=== PATIENT | male | born 1940 | race Hispanic/Latino ===

== ENCOUNTER 2019-03-13 01:07 | Emergency (ER) | payer OTHER ==
--- NOTE | 2019-03-13 02:39 | EDPHYS ---
Physician Documentation [facility] Name: Magdaleno Velázquez Age: 78 yrs Sex: Male : 1940 Arrival Date: 03/13/2019 Time: 01:08 Bed 13 Private MD: ED Physician Abrahan Hernandez HPI: 03/13 03:47 This 78 yrs old Male presents to ER via Ambulatory with complaints of Fall tw4 Injury. 03:47 Details of fall: The patient fell from an upright position, while standing. Onset: The tw4 symptoms/episode began/occurred just prior to arrival. Associated injuries: The patient sustained injury to the head. Severity of symptoms: At their worst the symptoms were mild, in the emergency department the symptoms are unchanged. The patient has not experienced similar symptoms in the past. Historical: - Allergies: 01:27 No Known Allergies; bb - Home Meds: :27 Aspirin Oral [Active]; Metoprolol Tartrate Oral [Active]; statin [Active]; bb - PMHx: :27 Hypertension; Myocardial infarction; bb - PSHx: :27 Heart stents; Appendectomy; Pin in right hand; bb - Immunization history: Last tetanus immunization: unknown. - Social history:: Smoking status: Patient uses tobacco products, smokes one-half pack cigarettes per day. - Ebola Screening: : No symptoms or risks identified at this time. ROS: 03:47 Constitutional: Negative for fever, chills, and weight loss, Cardiovascular: Negative tw4 for chest pain, palpitations, and edema, Respiratory: Negative for shortness of breath, cough, wheezing, and pleuritic chest pain, Abdomen/GI: Negative for abdominal pain, nausea, vomiting, diarrhea, and constipation, Back: Negative for injury and pain, MS/Extremity: Negative for injury and deformity, Skin: Negative for injury, rash, and discoloration, Neuro: Negative for headache, weakness, numbness, tingling, and seizure. Exam: 03:47 Constitutional: This is a well developed, well nourished patient who is awake, alert, tw4 and in no acute distress. Chest/axilla: Normal chest wall appearance and motion. Nontender with no deformity. No lesions are appreciated. Cardiovascular: Regular rate and rhythm with a normal S1 and S2. No gallops, murmurs, or rubs. Normal PMI, no JVD. No pulse deficits. Respiratory: Lungs have equal breath sounds bilaterally, clear to auscultation and percussion. No rales, rhonchi or wheezes noted. No increased work of breathing, no retractions or nasal flaring. Abdomen/GI: Soft, non-tender, with normal bowel sounds. No distension or tympany. No guarding or rebound. No evidence of tenderness throughout. 03:47 Head/face: Noted is contusion, that is deep, of the forehead and nose. 03:47 Musculoskeletal/extremity: Extremities: noted in the left wrist: decreased ROM, pain, swelling, tenderness. Vital Signs: 01:18 BP 188 / 98; Pulse 79; Resp 16 S; Temp 98.1(O); Pulse Ox 97% on R/A; Weight 83.46 kg bb (R); Height 5 ft. 9 in. (175.26 cm) (R); Pain 10/10; 02:00 BP 142 / 80; Pulse 80; Resp 17; Pulse Ox 98% on R/A; rr5 03:00 BP 133 / 72; Pulse 75; Resp 16; Temp 98; Pulse Ox 99% on R/A; rr5 01:18 Body Mass Index 27.17 (83.46 kg, 175.26 cm) bb Kenny Coma Score: 01:18 Eye Response: spontaneous(4). Verbal Response: oriented(5). Motor Response: obeys bb commands(6). Total: 15. 03:00 Eye Response: spontaneous(4). Verbal Response: oriented(5). Motor Response: obeys rr5 commands(6). Total: 15. Trauma Score (Adult): 01:18 Eye Response: spontaneous(1); Verbal Response: oriented(1); Motor Response: obeys bb commands(2); Systolic BP: > 89 mm Hg(4); Respiratory Rate: 10 to 29 per min(4); [place] Score: 15; Trauma Score: 12 MDM: 01:18 Patient medically screened. tw4 03:47 Differential diagnosis: closed head injury, fracture, sprain, strain. Data reviewed: tw4 vital signs, nurses notes. Test interpretation: by ED physician or midlevel provider: plain radiologic studies. Counseling: I had a detailed discussion with the patient and/or guardian regarding: the historical points, exam findings, and any diagnostic results supporting the discharge/admit diagnosis, lab results, radiology results. Medication response: tramadol. Response to treatment: the patient's symptoms have markedly improved after treatment, and as a result, I will continue to observe the patient. Special discussion: I discussed with the patient/guardian in detail that at this point there is no indication for admission to the hospital. It is understood, however, that if the symptoms persist or worsen the patient needs to return immediately for re-evaluation. 03/13 01:19 Order name: Wrist Left (2 View) XRAY tw4 03/13 01:19 Order name: CT Facial Bones W/O Con tw4 03/13 01:19 Order name: CT Head Brain wo Cont 4 03/13 02:59 Order name: Volar Wrist Splint: volar dorsal splint.; Complete Time: 02:59 rr5 03/13 02:59 Order name: Misc. Order: arm sling; Complete Time: 02:59 rr5 Administered Medications: 02:50 Drug: traMADol 50 mg {Note: rass 0.} Route: PO; rr5 03:00 Follow up: Response: Medication administered at discharge. rr5 Disposition: 03/13/19 02:38 Discharged to Home. Impression: Nondisplaced fracture of unspecified radial styloid process, Fracture of nasal bones. - Condition is Stable. - Discharge Instructions: Wrist Fracture Treated With Immobilization, Nasal Fracture, [id number], Head Injury, Adult, [id number]. - Prescriptions for Tramadol 50 mg Oral Tablet - take 1 tablet by ORAL route every 8 hours as needed; 12 tablet. - Medication Reconciliation Form, Thank You Letter, Antibiotic Education, Prescription Opioid Use form. - Follow up: Private Physician; When: Upon discharge from the Emergency Department; Reason: Recheck today's complaints, Continuance of care. Follow up: Alex Stallings MD; When: Upon discharge from the Emergency Department; Reason: Recheck today's complaints, Continuance of care, Re-evaluation by your physician. Follow up: Ilya Gaspar MD; When: Upon discharge from the Emergency Department; Reason: Recheck today's complaints, Continuance of care, Re-evaluation by your physician. - Problem is new. - Symptoms have improved. Signatures: Dispatcher [employer] EDManuela Gordon RN RN bb Abrahan Hernandez MD MD tw4 Jose Angel Connolly RN RN rr5 Corrections: (The following items were deleted from the chart) 02:39 02:38 03/13/2019 02:38 Discharged to Home. Impression: Nondisplaced fracture of tw4 unspecified radial styloid process; Fracture of nasal bones. Condition is Stable. Forms are Medication Reconciliation Form, Thank You Letter, Antibiotic Education, Prescription Opioid Use. Follow up: Private Physician; When: Upon discharge from the Emergency Department; Reason: Recheck today's complaints, Continuance of care. Problem is new. Symptoms have improved. tw4 03:05 02:39 03/13/2019 02:38 Discharged to Home. Impression: Nondisplaced fracture of rr5 unspecified radial styloid process; Fracture of nasal bones. Condition is Stable. Discharge Instructions: Wrist Fracture Treated With Immobilization, Nasal Fracture, [id number]. Prescriptions for Tramadol 50 mg Oral Tablet - take 1 tablet by ORAL route every 8 hours as needed; 12 tablet. and Forms are Medication Reconciliation Form, Thank You Letter, Antibiotic Education, Prescription Opioid Use. Follow up: Private Physician; When: Upon discharge from the Emergency Department; Reason: Recheck today's complaints, Continuance of care. Follow up: Alex Stallings; When: Upon discharge from the Emergency Department; Reason: Recheck today's complaints, Continuance of care, Re-evaluation by your physician. Follow up: Dr. Ilya Gaspar; When: Upon discharge from the Emergency Department; Reason: Recheck today's complaints, Continuance of care, Re-evaluation by your physician. Problem is new. Symptoms have improved. tw4
--- NOTE | 2019-03-13 02:39 | ER ---
Nurse's Notes [facility] Name: Magdaleno Velázquez Age: 78 yrs Sex: Male : 1940 Arrival Date: 03/13/2019 Time: 01:08 Bed 13 Private MD: Diagnosis: Nondisplaced fracture of unspecified radial styloid process;Fracture of nasal bones Presentation: 03/13 01:18 Presenting complaint: Patient states: approx 2 hours ago he tripped over the dog bb blanket and fell face first he thinks he broke his nose and his left wrist, he denies LOC or vomiting, he was not going to come in but the pain in his wrist is getting worse. Care prior to arrival: None. Mechanism of Injury: Fall from standing position. Trauma event details: Injury occurred in the [facility], Injury occurred: at home. Injury occurred: March 13, 2019. 01:18 Acuity: BRENDAN 3 bb 01:18 Method Of Arrival: Ambulatory bb 01:24 Transition of care: patient was not received from another setting of care. Onset of bb symptoms was March 13, 2019. Risk Assessment: Do you want to hurt yourself or someone else? Patient reports no desire to harm self or others. Initial Sepsis Screen: Does the patient meet any 2 criteria? No. Patient's initial sepsis screen is negative. Does the patient have a suspected source of infection? No. Patient's initial sepsis screen is negative. Trauma Activation: Not Applicable Physician: ED Physician; Name: ; Notified At: ; Arrived At: Physician: General Surgeon; Name: ; Notified At: ; Arrived At: Physician: Radiology; Name: ; Notified At: ; Arrived At: Physician: Respiratory; Name: ; Notified At: ; Arrived At: Physician: Lab; Name: ; Notified At: ; Arrived At: Historical: - Allergies: : No Known Allergies; bb - Home Meds: : Aspirin Oral [Active]; Metoprolol Tartrate Oral [Active]; statin [Active]; bb - PMHx: : Hypertension; Myocardial infarction; bb - PSHx: : Heart stents; Appendectomy; Pin in right hand; bb - Immunization history: Last tetanus immunization: unknown. - Social history:: Smoking status: Patient uses tobacco products, smokes one-half pack cigarettes per day. - Ebola Screening: : No symptoms or risks identified at this time. Screenin:24 Abuse screen: Denies threats or abuse. Denies injuries from another. Nutritional rr5 screening: No deficits noted. Tuberculosis screening: No symptoms or risk factors identified. Fall Risk Fall in past 12 months (25 points). Total Moyer Fall Scale indicates Low Risk Score (25-44 pts). Fall prevention measures have been instituted. Side Rails Up X 2 Placed close to Nursing Station Frequent Obs/Assesments occuring As available Patient and Family Educated on Fall Prevention Program and strategies. Primary Survey: 01:18 NO uncontrolled hemorrhage observed. A: The patient is alert. Airway: patent. bb Breathing/Chest: Respiratory pattern: regular, Respiratory effort: spontaneous, unlabored. Circulation: Heart tones present. Disability Alert. Exposure/Environment: All clothing and personal items were removed. Forensic evidence collection is not deemed to be indicated at this time. Items placed in patient belonging bag. Assessment: 01:20 General: Appears in no apparent distress. uncomfortable, Behavior is calm, cooperative, rr5 appropriate for age. Pain: Complains of pain in dorsal aspect of left wrist Pain does not radiate. Pain currently is 10 out of 10 on a pain scale. Quality of pain is described as aching, Pain began suddenly, Is continuous. Neuro: Level of Consciousness is awake, alert, obeys commands, Oriented to person, place, time, situation, Appropriate for age. Cardiovascular: Capillary refill < 3 seconds Patient's skin is warm and dry. Respiratory: Airway is patent Respiratory effort is even, unlabored, Respiratory pattern is regular, symmetrical. GI: No signs and/or symptoms were reported involving the gastrointestinal system. : No signs and/or symptoms were reported regarding the genitourinary system. EENT: swelling and abrasion on the nose and forehead noted.. Derm: Skin is intact, is healthy with good turgor, Skin temperature is warm Wound noted forehead and nose Wound is abrasion Bruising that is bright red, dark purple, on nose. Musculoskeletal: Capillary refill < 3 seconds, Swelling present in dorsal aspect of left wrist cold compress applied. 02:00 Reassessment: Patient appears in no apparent distress at this time. Patient is alert, rr5 oriented x 3, equal unlabored respirations, skin warm/dry/pink. awaiting for result. 03:02 Reassessment: Patient appears in no apparent distress at this time. Patient is alert, rr5 oriented x 3, equal unlabored respirations, skin warm/dry/pink. discharge instruction given and explained without complaints made. Vital Signs: 01:18 BP 188 / 98; Pulse 79; Resp 16 S; Temp 98.1(O); Pulse Ox 97% on R/A; Weight 83.46 kg bb (R); Height 5 ft. 9 in. (175.26 cm) (R); Pain 10/10; 02:00 BP 142 / 80; Pulse 80; Resp 17; Pulse Ox 98% on R/A; rr5 03:00 BP 133 / 72; Pulse 75; Resp 16; Temp 98; Pulse Ox 99% on R/A; rr5 01:18 Body Mass Index 27.17 (83.46 kg, 175.26 cm) bb Kenny Coma Score: 01:18 Eye Response: spontaneous(4). Verbal Response: oriented(5). Motor Response: obeys bb commands(6). Total: 15. 03:00 Eye Response: spontaneous(4). Verbal Response: oriented(5). Motor Response: obeys rr5 commands(6). Total: 15. Trauma Score (Adult): 01:18 Eye Response: spontaneous(1); Verbal Response: oriented(1); Motor Response: obeys bb commands(2); Systolic BP: > 89 mm Hg(4); Respiratory Rate: 10 to 29 per min(4); [place] Score: 15; Trauma Score: 12 ED Course: 01:08 Patient arrived in ED. ds1 01:18 Abrahan Hernandez MD is Attending Physician. tw4 01:18 Patient has correct armband on for positive identification. Bed in low position. Call bb light in reach. 01:18 Patient maintains SpO2 saturation greater than 95% on room air. bb 01:19 Jose Angel Connolly RN is Primary Nurse. rr5 01:23 Triage completed. bb 01:27 Arm band placed on Patient placed in an exam room, on a stretcher, on pulse oximetry. bb 01:50 CT Facial Bones W/O Con In Process Unspecified. EDMS 01:50 CT Head Brain wo Cont In Process Unspecified. EDMS 02:11 Wrist Left (2 View) XRAY In Process Unspecified. EDMS 02:35 No provider procedures requiring assistance completed. Patient did not have IV access rr5 during this emergency room visit. Orthoglass splint: volar dorsal splint Shoulder immobilizer applied on left shoulder. 02:39 Alex Stallings MD is Referral Physician. tw4 02:39 Ilya Gaspar MD is Referral Physician. tw4 Administered Medications: 02:50 Drug: traMADol 50 mg {Note: rass 0.} Route: PO; rr5 03:00 Follow up: Response: Medication administered at discharge. rr5 Intake: 01:18 PO: 0ml; Total: 0ml. bb Outcome: 02:38 Discharge ordered by . tw4 03:00 Discharged to home ambulatory. rr5 03:00 Condition: stable 03:00 Discharge instructions given to patient, Instructed on discharge instructions, follow up and referral plans. medication usage, Demonstrated understanding of instructions, follow-up care, medications, Prescriptions given X 1. 03:05 Patient left the ED. rr5 Signatures: Dispatcher [employer] EDPR Adelaide Rod ds1 Manuela Perales, RN RN bb Abrahan Hernandez MD MD tw4 Jose Angel Connolly RN RN rr5
[2019-03-13] MEDS ORDERED: TRAMADOL HCL 50 MG TAB ONE (02:46)
[2019-03-13 05:20] VITALS: BP 133/72; TEMP 98; O2SAT 99
--- NOTE | 2019-03-13 07:33 | RAD REPORT ---
EXAM DESCRIPTION: RAD - Wrist Left 2 View - 03/13/2019 2:07 am CLINICAL HISTORY: Left wrist pain status post injury FINDINGS: Bones are osteoporotic Nondisplaced fracture involves the distal radius. 6 millimeter bony density lies along the dorsal aspect of the wrist which may represent an avulsion f racture perhaps from the triquetrum. Age is indeterminate No dislocation
--- NOTE | 2019-03-14 12:52 | RAD REPORT ---
EXAM DESCRIPTION: CT - Facial Bones W/ Mpr - 03/13/2019 5:54 am CLINICAL HISTORY: FACIAL PAIN COMPARISON: None. TECHNIQUE: CT MAXILLOFACIAL WITHOUT IV CONTRAST on 03/13/2019 1:19 AM BEDSPREAD FOLDER This exam was performed according to our departmental dose-optimization program, which includes autom ated exposure control, adjustment of the mA and/or kV according to patient size and/or use of iterati ve reconstruction technique. FINDINGS: There are bilateral mildly displaced nasal bone fractures. There is a mucous retention cys t in the left maxillary sinus. Orbits and globes are unremarkable. Mastoid air cells are clear. Tempo romandibular joints are intact. There is soft tissue swelling overlying the nasal bones. IMPRESSION: Bilateral nasal bone fractures Electronically signed by: Bran Lai MD 03/13/2019 2:00 AM BEDSPREAD FOLDER Due to temporary technical issues with the PACS/Fluency reporting system, reports are being signed by the in house radiologist as a courtesy to ensure prompt reporting. The interpreting radiologist is f ully responsible for the content of the report.
--- NOTE | 2019-03-14 12:53 | RAD REPORT ---
EXAM DESCRIPTION: CT - Head Brain Wo Cont - 03/13/2019 5:54 am CLINICAL HISTORY: PAIN COMPARISON: None. TECHNIQUE: CT HEAD WITHOUT IV CONTRAST on 03/13/2019 1:19 AM CONVERTING TECHNICIAN This exam was performed according to our departmental dose-optimization program, which includes autom ated exposure control, adjustment of the mA and/or kV according to patient size and/or use of iterati ve reconstruction technique. FINDINGS: There is no acute hemorrhage, mass effect or midline shift. Villanueva-white differentiation is preserved. There is no hydrocephalus. There is mild to moderate mostly bifrontal cerebral atrophy. Th ere are mild patchy hypodensities within the periventricular and subcortical white matter, consistent with microangiopathic ischemic changes. There is minimal right frontal soft tissue swelling. The calvarium is intact. Orbits and globes are unremarkable. The paranasal sinuses are clear. Mastoid air cells are clear. IMPRESSION: No acute intracranial findings. Electronically signed by: Bran Lai MD 03/13/2019 2:01 AM CONVERTING TECHNICIAN Due to temporary technical issues with the PACS/Fluency reporting system, reports are being signed by the in house radiologist as a courtesy to ensure prompt reporting. The interpreting radiologist is f ully responsible for the content of the report.
== END 2019-03-13 03:05 | disposition home or self-care (01) ==
LOC: ER 01:07
DX: S52.515A Nondisplaced fracture of left radial styloid process, initial encounter for closed fracture (principal); S02.2XXA Fracture of nasal bones, initial encounter for closed fracture; W01.0XXA Fall on same level from slipping, tripping and stumbling without subsequent striking against object, initial encounter; Y93.89 Activity, other specified; Y92.9 Unspecified place or not applicable; I25.2 Old myocardial infarction; I10 Essential (primary) hypertension; F17.210 Nicotine dependence, cigarettes, uncomplicated
CPT/HCPCS: 70450; 70486; 76377; 99284